=== PATIENT | female | born 2005 | race Caucasian/White ===

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

== ENCOUNTER 2025-05-08 22:24 | Emergency (ER) | payer BC, SELFPAY ==
[2025-05-08 22:26] VITALS: BP 135/77
[2025-05-08 22:41] LABS: % Basophils 0.4 % (0-2); % Eosinophils 0.3 % (0-6); % Immature Granulocytes 0.3 % (0-0.5); % Lymphocytes 13.4 % (20.5-51.1); % Monocytes 2.6 % (1.7-9.3); Absolute Lymphocytes 0.9 10^3/uL (1.2-3.4); Absolute Monocytes 0.2 10^3/uL (0.1-0.6); Absolute Neutrophils 5.6 10^3/uL (1.4-6.5); Hematocrit 36.8 % (37.0-47.0); Hemoglobin 12.6 g/dL (12.0-16.0); Mean Corp Hgb Conc. 34.2 g/dL (33.0-37.0); Mean Corpuscular Hgb 27.7 pg (27.0-31.0); Mean Corpuscular Volume 80.9 fL (81.0-99.0); Mean Platelet Volume 11.5 fL (7.4-10.4); Nucleated Red Blood Cells % 0 %; Platelet Count 180 10^3/uL (130-400); Red Blood Cell Count 4.55 10^6/uL (4.20-5.40); Red Cell Dist. Width 13.2 % (11.5-14.5); White Blood Cell Count 6.8 10^3/uL (4.8-10.8)
[2025-05-08 22:56] LABS: HCG, Serum Qualitative Screen Negative
[2025-05-08 23:23] LABS: ALT (SGPT) 29 U/L (0-35); AST (SGOT) 22 U/L (14-36); Albumin 4.5 g/dl (3.5-5.0); Alkaline Phosphatase 52 U/L (38-126); Blood Urea Nitrogen 14 mg/dl (7-17); Calcium 9.7 mg/dl (8.4-10.2); Carbon Dioxide 25 mmol/L (22-30); Chloride 105 mmol/L (98-107); Glucose 121 mg/dl (70-99); Potassium 3.6 mmol/L (3.5-5.1); Sodium 139 mmol/L (135-145); Total Protein 7.4 g/dl (6.3-8.2); eGFR > 60.00
[2025-05-08 23:55] VITALS: BP 109/75
[2025-05-09] VITALS: BP 106/81
[2025-05-09 00:03] VITALS: BMI 42.1
--- NOTE | 2025-05-09 00:29 | ED.GENMED ---
History of Present Illness
General
Chief Complaint: Vaginal Bleeding
Time Seen by Provider: 05/08/25 23:53
History of Present Illness
History of Present Illness:
Patient is a 20-year-old woman presenting to the emergency department with vaginal bleeding. Patient's last period was March 14. This morning she had irregular bleeding that stopped 20 minutes later. She then had spotting all day long. Later
this evening she developed. Cramping got nauseous and felt off so she came into the emergency room for further evaluation. She did have a test by blood last week which was negative. No fevers or chills. No vaginal discharge. No
concerns for STIs. No abdominal pain. The spotting is very light.
Past History
Past History
ED Past Medical History: Other (migraine disorder; concussion; hypothyroidism; 'spot on brain' noted on MR brain)
ED Past Surgical History: Other (right hand surgery; ear tubes)
Social History
Tobacco: Non-smoker
Alcohol: Occasional
Drug: None
Phy Exam
Physical Exam
Physical Exam:
GENERAL: in no acute distress
HEENT: normocephalic, extraocular movements intact, moist oral mucosa
NECK: normal inspection
RESPIRATORY: no respiratory distress, clear to auscultation bilaterally
CARDIOVASCULAR: regular rate and rhythm
ABDOMEN/: soft, non-distended, non-tender to palpation, no rebound or guarding
EXTREMITIES: non-tender, no edema/swelling
NEUROLOGIC: awake and alert, moves all extremities
SKIN: warm
Course
Orders/Labs/Results
Orders:
Orders
05/08/25 22:29
Test Result ONCE
05/08/25 22:33
US Pelvis Only (non-obstetric) Urgent
Reason For Exam: bleeding and pain
05/08/25 22:36
Complete Blood Count/With Diff Urgent
Comprehensive Metabolic Panel Urgent
HCG, Serum Qualitative Screen Urgent
Abnormal Lab Results
05/08/25
22:36
Hct 36.8 L %
(37.0-47.0)
MCV 80.9 L fL
(81.0-99.0)
MPV 11.5 H fL
(7.4-10.4)
Absolute Lymphs (auto) 0.9 L 10^3/uL
(1.2-3.4)
Neutrophils % 83.0 H %
(42.2-75.2)
Lymphocytes % 13.4 L %
(20.5-51.1)
Glucose 121 H mg/dl
(70-99)
05/08/25 22:36
05/08/25 22:36
Vital Signs
Initial and Last Documented VS:
Initial Vital Signs
Temp Pulse Resp BP Pulse Ox
98.9 F 110 16 135/77 99
05/08/25 22:26 05/08/25 22:26 05/08/25 22:26 05/08/25 22:26 05/08/25 22:26
Last Documented Vital Signs
Temp Pulse Resp BP Pulse Ox
98.9 F 79 18 106/81 98
05/08/25 22:26 05/09/25 00:04 05/09/25 00:04 05/09/25 00:00 05/09/25 00:00
MDM/Problems Addressed
Differential Diagnosis Includes:
Patient is a 20-year-old female presenting to the emergency department with vaginal spotting and cramping with her last period being March 14. On arrival vitals unremarkable and exam is reassuring. Concern for versus abnormal uterine
bleeding versus regular menstruation. Could be ovarian cyst or ruptured ovarian cyst though less likely as patient's abdominal exam is benign. blood work obtained prior to my evaluation shows a normal hemoglobin. Will proceed with ultrasound.
*Critical Care Note
Total Time (30-74mins, 75-104mins- exclusive of procedures): Not Applicable
Update Note
Update Note:
Ultrasound no acute abnormality. Will discharge at this time. Patient will call her gynecology for outpatient follow-up.
ED Attending Note
-
Portions of this chart may have been created with voice recognition software.� Occasional wrong word or��sound alike� substitutions may have occurred due to the inherent limitations of voice recognition software.
Discharge Plan
Departure
Patient Disposition: Home (Routine Discharge)
Date of Disposition: 05/09/25
Time of Disposition: 01:55
Patient with high blood pressure during this ER visit?: No
Discharge Problem:
Vaginal spotting
Activity Restrictions/Additional Instructions:
You were seen in the Emergency Department today for . Vaginal spotting while you were here we performed blood work and an ultrasound, which was reassuring. Please make sure you follow-up with your associate professor of art.
We would like for you to follow up with your primary care physician for further evaluation. If you experience fever, worsening of your symptoms, or develop any other new or concerning symptoms, please return to the Emergency Department immediately.
Please see the attached sheet for additional information.
Interventions
Interventions:
*Risk Screen - Suicide Last Done: 05/08/25 22:26
*General Assessment Last Done: 05/08/25 22:26
*Neglect/Abuse Screening Last Done: 05/08/25 22:26
ED-Female Genitourinary Assessment Last Done: 05/09/25 00:00
Discharge Date and Time
Print Language: ARGENTINE
[2025-05-09 02:00] VITALS: BP 142/81
== END 2025-05-09 02:12 | disposition home or self-care (01) ==
LOC: EMR 22:24
PROVIDERS: Student in an Organized Health Care Education/Training Program; EMERGENCY PHYSICIAN Student in an Organized Health Care Education/Training Program
DX: N93.9 Abnormal uterine and vaginal bleeding, unspecified (principal); R11.0 Nausea; R10.9 Unspecified abdominal pain; G43.909 Migraine, unspecified, not intractable, without status migrainosus; E03.9 Hypothyroidism, unspecified; Z87.820 Personal history of traumatic brain injury
CPT/HCPCS: 99284; 76856; 80053; 84703; 85025